=== PATIENT | male | born 1955 | race African-American/Black ===

== ENCOUNTER 2021-08-03 13:50 | Emergency (ER) | payer MEDICARE, OTHER ==
--- NOTE | 2021-08-03 14:10 | NUR ---
called to triage,no answer
--- NOTE | 2021-08-03 14:10 | NUR ---
called to triage,no answer
--- NOTE | 2021-08-03 17:25 | NUR ---
CALLED IN ED WAITING ROOM. NO RESPONSE.
--- NOTE | 2021-08-03 17:25 | NUR ---
CALLED IN ED WAITING ROOM. NO RESPONSE.
--- NOTE | 2021-08-03 17:50 | NUR ---
PT LEFT WITHOUT BEING TRIAGE.
--- NOTE | 2021-08-03 17:50 | NUR ---
PT LEFT WITHOUT BEING TRIAGE.
[2021-08-04] MEDS ORDERED: DOXY100C2 PO (13:41)
== END 2021-08-03 17:53 | disposition home or self-care (01) ==
LOC: ER 13:55
DX: Z53.21 Procedure and treatment not carried out due to patient leaving prior to being seen by health care provider (principal); R50.9 Fever, unspecified

== ENCOUNTER 2021-08-04 09:34 | Emergency (ER) | payer MEDICARE, OTHER ==
[~2021-08-04] VITALS: Ht 170.2 cm; Wt 68.0 kg
[2021-08-04 10:47] VITALS: BP 100/87
--- NOTE | 2021-08-04 11:42 | NUR ---
COVID ANTIGEN AND PCR SWAB DONE AND SENT TO LAB
[2021-08-04] MEDS ORDERED: ACETAMINOPHEN 325 MG TABLET ONE (12:57)
[2021-08-04] MEDS ORDERED: ACETAMINOPHEN 325 MG TABLET PO ONE (13:00)
[2021-08-04] MEDS ORDERED: DOXY100C2 PO (13:41)
== END 2021-08-04 14:01 | disposition home or self-care (01) ==
LOC: ER 09:40
DX: J18.9 Pneumonia, unspecified organism (principal); Z20.822 Contact with and (suspected) exposure to COVID-19; K21.9 Gastro-esophageal reflux disease without esophagitis; I10 Essential (primary) hypertension; Z86.73 Personal history of transient ischemic attack (TIA), and cerebral infarction without residual deficits
CPT/HCPCS: 71045-TC; C9803; U0003